=== PATIENT | male | born 1945 | race Caucasian/White ===

== ENCOUNTER 2017-08-18 04:23 | Inpatient (IN) | payer MEDICAID ==
[~2017-08-18] VITALS: Ht 172.7 cm; Wt 55.1 kg
[2017-08-18] MEDS ORDERED: INSU100V SQ (04:35)
[2017-08-18] MEDS ORDERED: DOXA2TAB PO (04:35)
[2017-08-18] MEDS ORDERED: FOLI0.8T2 PO (04:35)
[2017-08-18] MEDS ORDERED: HEPA500041 SQ (04:35)
[2017-08-18] MEDS ORDERED: SEVEC800 PO (04:35)
[2017-08-18] MEDS ORDERED: RAPID SEQUENCE KIT [RSI] 1 EACH KIT ONE (04:35)
[2017-08-18] MEDS ORDERED: CARV25 PO (04:35)
[2017-08-18] MEDS ORDERED: AMIN30LI28 PO (04:35)
[2017-08-18] MEDS ORDERED: HYDR-2924 PO (04:35)
[2017-08-18] MEDS ORDERED: SERT50TA12 PO (04:35)
[2017-08-18] MEDS ORDERED: NIFE60TA71 PO (04:35)
[2017-08-18] MEDS ORDERED: LOSA50TA37 PO (04:35)
[2017-08-18] MEDS ORDERED: SUCCINYLCHOLINE CHLORIDE 20 MG/ML 10 ML VIAL ONE (04:35)
[2017-08-18 05:00] LABS: BASOPHILS % (AUTO) 0.8 % (0.0-2.0); EOSINOPHILS % (AUTO) 1.1 % (1.0-6.0); HEMATOCRIT 33.2 % (41-53); HEMOGLOBIN 10.9 g/dL (13.5-17.5); MEAN CORPUSCULAR HEMOGLOBIN 25.6 pg (26.0-34.0); MEAN CORPUSCULAR HGB CONC 32.8 G/dL (31.0-37.0); MEAN CORPUSCULAR VOLUME 78 fL (80-100); MONOCYTES # (AUTO) 0.6 K/uL (0.1-1.0); MONOCYTES % (AUTO) 4.2 % (2.0-9.0); NEUTROPHILS # (AUTO) 12.4 K/uL (1.8-7.7); PLATELET COUNT (AUTO) 361 K/uL (150-450); RED BLOOD CELL COUNT(AUTO) 4.25 MIL/uL (4.50-5.90); RED CELL DISTRIBUTION WIDTH 24.2 % (11.5-14.5)
[2017-08-18 05:01] LABS: NEUTROPHILS % (AUTO) 86.9 % (40.0-70.0)
[2017-08-18 05:09] LABS: PROTHROMBIN TIME 10.3 SEC (9.4-11.6)
[2017-08-18 05:10] LABS: ANION GAP 11 mmol/L (8-16); CALCIUM, TOTAL 9.5 mg/dL (8.8-10.5); CARBON DIOXIDE 25 mmol/L (22-29); CHLORIDE 98 mmol/L (98-107); CREATININE 5.96 mg/dL (0.60-1.30); GLOMERULAR FILTR. RATE CALC 9 mL/min (>60); GLUCOSE,RANDOM 239 mg/dL (70-110); POTASSIUM 4.5 mmol/L (3.5-5.1); SODIUM SERUM 134 mmol/L (136-145); UREA NITROGEN, BLOOD 69 mg/dL (7-18)
[2017-08-18] MEDS ORDERED: 0.9% SODIUM CHLORIDE 5 ML NEB SOLUTION NEB ONE (05:11)
[2017-08-18] MEDS ORDERED: FUROSEMIDE 40 MG/4 ML VIAL IVP ONE (05:15)
[2017-08-18] MEDS ORDERED: IPRATROPIUM BROMIDE 0.5 MG/2.5 ML NEB SOLUTION NEB ONE (05:15)
[2017-08-18] MEDS ORDERED: ALBUTEROL SULFATE 2.5 MG/0.5 ML NEB SOLUTION NEB ONE (05:15)
[2017-08-18 05:17] LABS: ALANINE AMINOTRANSFERASE 21 U/L (12-78); ALBUMIN 2.7 g/dL (3.4-5.0); ALKALINE PHOSPHATASE 92 U/L (46-116); ASPARTATE AMINOTRANSFERASE 23 U/L (15-37); BILIRUBIN,TOTAL 0.5 mg/dL (0.1-1.0); CREATINE KINASE, TOTAL 64 U/L (39-308); TOTAL PROTEIN, SERUM 8.2 g/dL (6.4-8.2)
[2017-08-18 05:28] LABS: B-TYPE NATRIURETIC PEPTIDE 4880 pg/mL (0-100)
[2017-08-18 05:32] LABS: ABG A-A DIFF O2 594.9 mmHg (10-20.0); ABG BASE EXCESS -0.2 mmol/L (-2.0-3.0); ABG CARBOXYHEMOGLOBIN 1.2 % (0.0-1.5); ABG METHEMOGLOBIN 0.3 % (0.0-1.5); ABG OXYGEN CONTENT 14.4 mL/dL (15.0-23.0); ABG OXYHEMOGLOBIN 93.6 % (94.0-100.0); ABG PCO2 46 mmHg (35-45); ABG PH 7.355 (7.35-7.450); ABG TOTAL HEMOGLOBIN 10.9 G/dL (12.0-18.0); PO2, ARTERIAL BG 74.9 mmHg (75.0-83.0); SOURCE, BLOOD GAS ARTERIAL; TEMPERATURE, FAHRENHEIT, BG 96.5 FAHREN (96.0-98.6)
[2017-08-18 05:33] LABS: O2 DEVICE,BLOOD GAS NON REBREATHER (ROOM AIR); SITE, BLOOD GAS RT BRACHIAL
[2017-08-18] MEDS ORDERED: ONDANSETRON HCL 4 MG/2 ML VIAL IVP PRN (06:00)
[2017-08-18] MEDS ORDERED: ACETAMINOPHEN 325 MG TABLET PO PRN (06:00)
[2017-08-18] MEDS ORDERED: 0.9% SODIUM CHLORIDE 10 ML SYRINGE IVP PRN (06:00)
[2017-08-18] MEDS ORDERED: ASPIRIN 325 MG TABLET PO ONE (06:15)
[2017-08-18] MEDS: OXYGEN THERAPY IH SCH ×2 (07:01→21:34)
[2017-08-18 08:30] VITALS: BP 145/86
[2017-08-18] MEDS: VITAMIN B COMP/VIT C/FOLIC ACID CAPSULE PO SCH (10:00)
[2017-08-18] MEDS ORDERED: VANCOMYCIN HCL 500 MG in DEXTROSE 5%-WATER 100 ML IV SCH (10:00)
[2017-08-18] MEDS ORDERED: VANCOMYCIN HCL 1 GM/D5% WATER 200 ML IV PRN (10:15)
[2017-08-18] MEDS ORDERED: MANNITOL 25%-12.5 GM/50 ML VIAL IVP PRN (10:30)
[2017-08-18] MEDS ORDERED: SODIUM CHLORIDE 0.9% 250 ML IV ONE (11:50)
[2017-08-18] MEDS: PIPERACILLIN SODIUM/TAZOBACTAM 2.25 GM in DEXTROSE 5%-WATER 50 ML IV SCH ×2 (11:53→17:19)
[2017-08-18 12:00] VITALS: BP 117/69
[2017-08-18] MEDS ORDERED: VANCOMYCIN HCL 1 GM/D5% WATER 200 ML IV ONE (12:00)
[2017-08-18] MEDS: SEVELAMER CARBONATE 800 MG TABLET PO SCH ×2 (12:00→17:28)
[2017-08-18] MEDS: LOSARTAN POTASSIUM 50 MG TABLET PO SCH (13:00)
[2017-08-18] MEDS ORDERED: DEXTROSE 50%-WATER 25 GM/50 ML SYRINGE IVP PRN (13:15)
[2017-08-18] MEDS ORDERED: HEPA500018 SQ (13:20)
[2017-08-18] MEDS ORDERED: SODIUM CHLORIDE 0.9% 100 ML ONE (14:47)
[2017-08-18] MEDS ORDERED: IOVERSOL 350 MG/ML 150 ML VIAL ONE (14:47)
[2017-08-18 16:00] VITALS: BP 157/74
[2017-08-18] MEDS ORDERED: HEPARIN SODIUM,PORCINE 5,000 UNITS/ML VIAL IVP PRN ×2 (16:45)
[2017-08-18] MEDS ORDERED: HEPARIN SODIUM,PORCINE 5,000 UNITS/ML VIAL IVP ONE (16:45)
[2017-08-18] MEDS: HEPARIN SODIUM 25000 UNITS/D5W 250 ML IV PRN (17:21)
[2017-08-18 20:00] VITALS: BP 149/72
[2017-08-18] MEDS ORDERED: HEPARIN SODIUM,PORCINE 5,000 UNITS/ML VIAL SQ SCH (21:00)
[2017-08-18] MEDS: CARVEDILOL 12.5 MG TABLET PO SCH (21:34)
[2017-08-18 22:08] LABS: GLUCOSE,POINT OF CARE 109 MG/DL (70-110)
[2017-08-18 22:08] LABS: GLUCOSE,POINT OF CARE 133 MG/DL (70-110)
[2017-08-19] VITALS: BP 155/74
[2017-08-19] MEDS ORDERED: HEPARIN SODIUM,PORCINE 5,000 UNITS/ML VIAL IVP PRN (00:43)
[2017-08-19] MEDS ORDERED: 0.9% SODIUM CHLORIDE 10 ML SYRINGE IVP PRN (01:15)
[2017-08-19] MEDS: PIPERACILLIN SODIUM/TAZOBACTAM 2.25 GM in DEXTROSE 5%-WATER 50 ML IV SCH ×3 (02:06→17:35)
[2017-08-19 04:00] VITALS: BP 155/77
[2017-08-19 06:37] LABS: BASOPHILS % (AUTO) 1.1 % (0.0-2.0); EOSINOPHILS % (AUTO) 0.8 % (1.0-6.0); HEMATOCRIT 29.1 % (41-53); HEMOGLOBIN 9.5 g/dL (13.5-17.5); LYMPHOCYTES # (AUTO) 1.6 K/uL (1.0-4.8); LYMPHOCYTES % (AUTO) 11.5 % (22.0-44.0); MEAN CORPUSCULAR HEMOGLOBIN 25.4 pg (26.0-34.0); MEAN CORPUSCULAR HGB CONC 32.8 G/dL (31.0-37.0); MEAN CORPUSCULAR VOLUME 78 fL (80-100); MONOCYTES # (AUTO) 0.9 K/uL (0.1-1.0); MONOCYTES % (AUTO) 6.3 % (2.0-9.0); NEUTROPHILS # (AUTO) 11.1 K/uL (1.8-7.7); NEUTROPHILS % (AUTO) 80.3 % (40.0-70.0); PLATELET COUNT (AUTO) 345 K/uL (150-450); RED BLOOD CELL COUNT(AUTO) 3.76 MIL/uL (4.50-5.90); RED CELL DISTRIBUTION WIDTH 24.4 % (11.5-14.5)
[2017-08-19 06:48] LABS: GLUCOSE,POINT OF CARE 138 MG/DL (70-110)
[2017-08-19 06:48] LABS: GLUCOSE,POINT OF CARE 126 MG/DL (70-110)
[2017-08-19 07:02] LABS: ALBUMIN 2.5 g/dL (3.4-5.0); BILIRUBIN,TOTAL 0.5 mg/dL (0.1-1.0); CALCIUM, TOTAL 9.3 mg/dL (8.8-10.5); CREATININE 4.94 mg/dL (0.60-1.30); MAGNESIUM 1.9 mg/dL (1.80-2.40); PHOSPHORUS 5.1 mg/dL (2.5-4.9); POTASSIUM 4.5 mmol/L (3.5-5.1); THYROID STIMULATING HORMONE 1.81 uIU/mL (0.36-3.74); TOTAL PROTEIN, SERUM 7.4 g/dL (6.4-8.2); VANCOMYCIN,RANDOM 15.9 mcg/mL (25.0-50.0)
[2017-08-19 08:00] VITALS: BP 144/71
[2017-08-19] MEDS: VITAMIN B COMP/VIT C/FOLIC ACID CAPSULE PO SCH (08:49)
[2017-08-19] MEDS: ASPIRIN 81 MG CHEWABLE TABLET PO SCH (08:49)
[2017-08-19] MEDS: HEPARIN SODIUM,PORCINE 5,000 UNITS/ML VIAL IVP PRN ×3 (08:49→22:59)
[2017-08-19] MEDS: SEVELAMER CARBONATE 800 MG TABLET PO SCH ×3 (08:49→17:34)
[2017-08-19] MEDS: CARVEDILOL 12.5 MG TABLET PO SCH ×2 (08:50→21:43)
[2017-08-19] MEDS: SERTRALINE HCL 50 MG TABLET PO SCH (08:50)
[2017-08-19] MEDS: LOSARTAN POTASSIUM 50 MG TABLET PO SCH (08:50)
[2017-08-19] MEDS: OXYGEN THERAPY IH SCH ×2 (08:50→21:47)
[2017-08-19 10:54] LABS: ABG A-A DIFF O2 114.7 mmHg (10-20.0); ABG BASE EXCESS 1.5 mmol/L (-2.0-3.0); ABG CARBOXYHEMOGLOBIN 2.1 % (0.0-1.5); ABG HCO3 25.9 mmol/L (22.0-26.0); ABG METHEMOGLOBIN 0.4 % (0.0-1.5); ABG OXYGEN CONTENT 12.9 mL/dL (15.0-23.0); ABG OXYGEN SATURATION 97.6 % (95.0-98.0); ABG OXYHEMOGLOBIN 95.2 % (94.0-100.0); ABG PCO2 38 mmHg (35-45); ABG PH 7.448 (7.35-7.450); ABG TOTAL HEMOGLOBIN 9.5 G/dL (12.0-18.0); PO2, ARTERIAL BG 98.1 mmHg (75.0-83.0); SOURCE, BLOOD GAS ARTERIAL; TEMPERATURE, FAHRENHEIT, BG 98.6 FAHREN (96.0-98.6)
[2017-08-19 11:02] LABS: O2 DEVICE,BLOOD GAS CANNULA (ROOM AIR); SITE, BLOOD GAS RT BRACHIAL
[2017-08-19 12:00] VITALS: BP 129/55
[2017-08-19] MEDS: INSULIN LISPRO 100 UNITS/ML SQ PRN ×2 (12:22→21:46)
[2017-08-19] MEDS ORDERED: SODIUM CHLORIDE 0.9% 1,000 ML IV ONE (14:14)
[2017-08-19 15:58] LABS: GLUCOSE,POINT OF CARE 160 MG/DL (70-110)
[2017-08-19 16:00] VITALS: BP 152/70
[2017-08-19] MEDS: HEPARIN SODIUM 25000 UNITS/D5W 250 ML IV PRN (17:31)
[2017-08-19] MEDS ORDERED: VANCOMYCIN HCL 1 GM/D5% WATER 200 ML IV ONE (19:00)
[2017-08-19 20:00] VITALS: BP 133/65
[2017-08-20] VITALS (18 sets, daily range): BP systolic 122–159; BP diastolic 56–77
[2017-08-20] MEDS: HYDROCODONE/ACETAMINOPHEN 5-325 MG TABLET PO PRN ×4 (00:31→21:17)
[2017-08-20 00:53] LABS: GLUCOSE,POINT OF CARE 178 MG/DL (70-110)
[2017-08-20 00:53] LABS: GLUCOSE,POINT OF CARE 104 MG/DL (70-110)
[2017-08-20] MEDS: PIPERACILLIN SODIUM/TAZOBACTAM 2.25 GM in DEXTROSE 5%-WATER 50 ML IV SCH ×3 (02:26→17:23)
[2017-08-20 05:09] LABS: HEMOGLOBIN A1C 7.3 % (4.5-6.2)
[2017-08-20 05:10] LABS: BASOPHILS % (AUTO) 1.1 % (0.0-2.0); EOSINOPHILS % (AUTO) 4.4 % (1.0-6.0); HEMATOCRIT 27.5 % (41-53); HEMOGLOBIN 9.1 g/dL (13.5-17.5); LYMPHOCYTES # (AUTO) 1.9 K/uL (1.0-4.8); LYMPHOCYTES % (AUTO) 17.6 % (22.0-44.0); MEAN CORPUSCULAR HEMOGLOBIN 25.9 pg (26.0-34.0); MEAN CORPUSCULAR HGB CONC 33.2 G/dL (31.0-37.0); MEAN CORPUSCULAR VOLUME 78 fL (80-100); MONOCYTES # (AUTO) 0.9 K/uL (0.1-1.0); MONOCYTES % (AUTO) 8.5 % (2.0-9.0); NEUTROPHILS # (AUTO) 7.5 K/uL (1.8-7.7); NEUTROPHILS % (AUTO) 68.4 % (40.0-70.0); PLATELET COUNT (AUTO) 321 K/uL (150-450); RED BLOOD CELL COUNT(AUTO) 3.52 MIL/uL (4.50-5.90); RED CELL DISTRIBUTION WIDTH 24.7 % (11.5-14.5)
[2017-08-20 05:58] LABS: CHOL/HDL RATIO 1.9 (4.2-7.3); MAGNESIUM 1.8 mg/dL (1.80-2.40)
[2017-08-20 06:33] LABS: GLUCOSE,POINT OF CARE 96 MG/DL (70-110)
[2017-08-20] MEDS: SEVELAMER CARBONATE 800 MG TABLET PO SCH ×3 (08:00→17:23)
[2017-08-20] MEDS ORDERED: LIDOCAINE HCL/PF 1% 30 ML VIAL ONE (08:42)
[2017-08-20] MEDS ORDERED: SODIUM BICARBONATE 50 MEQ/50 ML VIAL ONE (08:42)
[2017-08-20] MEDS ORDERED: IOHEXOL 300 MG/ML 150 ML VIAL ONE (08:42)
[2017-08-20] MEDS: ASPIRIN 81 MG CHEWABLE TABLET PO SCH (09:00)
[2017-08-20] MEDS: VITAMIN B COMP/VIT C/FOLIC ACID CAPSULE PO SCH ×2 (09:00→11:05)
[2017-08-20] MEDS: OXYGEN THERAPY IH SCH ×2 (09:27→21:17)
[2017-08-20] MEDS ORDERED: FentaNYL CITRATE-PF 100 MCG/2 ML VIAL ONE (09:30)
[2017-08-20] MEDS ORDERED: MIDAZOLAM HCL 2 MG/2 ML VIAL ONE (09:30)
[2017-08-20] MEDS ORDERED: SODIUM CHLORIDE 0.9% 500 ML IV ONE (09:39)
[2017-08-20] MEDS ORDERED: HEPARIN SODIUM 1000 UNITS/NS 1,000 ML IARTER ONE (09:39)
[2017-08-20] MEDS ORDERED: MIDAZOLAM HCL 2 MG/2 ML VIAL IVP ONE (09:45)
[2017-08-20] MEDS ORDERED: LIDOCAINE 1% 30 ML/SOD BICARB 8.4% 4 ML SQ ONE (09:45)
[2017-08-20] MEDS ORDERED: FentaNYL CITRATE-PF 100 MCG/2 ML VIAL IVP ONE (09:45)
[2017-08-20] MEDS ORDERED: IOHEXOL 300 MG/ML 150 ML VIAL IARTER ONE (09:45)
[2017-08-20] MEDS ORDERED: IOHEXOL 300 MG/ML 50 ML VIAL ONE (09:55)
[2017-08-20] MEDS: LOSARTAN POTASSIUM 50 MG TABLET PO SCH (11:06)
[2017-08-20] MEDS: SERTRALINE HCL 50 MG TABLET PO SCH (11:07)
[2017-08-20] MEDS: CARVEDILOL 12.5 MG TABLET PO SCH ×2 (11:16→21:17)
[2017-08-20] MEDS: INSULIN LISPRO 100 UNITS/ML SQ PRN ×2 (11:33→17:33)
[2017-08-20 12:57] LABS: GLUCOSE,POINT OF CARE 145 MG/DL (70-110)
[2017-08-20] MEDS ORDERED: HEPARIN SODIUM,PORCINE 5,000 UNITS/ML VIAL IVP ONE (20:30)
[2017-08-20] MEDS ORDERED: HEPARIN SODIUM,PORCINE 5,000 UNITS/ML VIAL IVP PRN ×2 (20:30)
[2017-08-20 21:12] LABS: GLUCOMETER DEV NAME(LOC) 5S 2N; GLUCOSE,POINT OF CARE 199 MG/DL (70-110)
[2017-08-20 21:24] LABS: BASOPHILS % (AUTO) 1.1 % (0.0-2.0); EOSINOPHILS % (AUTO) 3.9 % (1.0-6.0); HEMATOCRIT 29.4 % (41-53); HEMOGLOBIN 9.6 g/dL (13.5-17.5); LYMPHOCYTES # (AUTO) 1.5 K/uL (1.0-4.8); MEAN CORPUSCULAR HEMOGLOBIN 25.6 pg (26.0-34.0); MEAN CORPUSCULAR HGB CONC 32.8 G/dL (31.0-37.0); MEAN CORPUSCULAR VOLUME 78 fL (80-100); MONOCYTES # (AUTO) 0.9 K/uL (0.1-1.0); MONOCYTES % (AUTO) 10.7 % (2.0-9.0); NEUTROPHILS # (AUTO) 5.3 K/uL (1.8-7.7); NEUTROPHILS % (AUTO) 65.3 % (40.0-70.0); PLATELET COUNT (AUTO) 368 K/uL (150-450); RED BLOOD CELL COUNT(AUTO) 3.76 MIL/uL (4.50-5.90); RED CELL DISTRIBUTION WIDTH 24.2 % (11.5-14.5)
[2017-08-20 21:31] LABS: PROTHROMBIN TIME 10.7 SEC (9.4-11.6)
[2017-08-20] MEDS: HEPARIN SODIUM 25000 UNITS/D5W 250 ML IV PRN (23:04)
[2017-08-21] VITALS (10 sets, daily range): BP systolic 131–158; BP diastolic 54–70
[2017-08-21] MEDS: PIPERACILLIN SODIUM/TAZOBACTAM 2.25 GM in DEXTROSE 5%-WATER 50 ML IV SCH ×2 (02:32→09:32)
[2017-08-21 04:13] LABS: GLUCOMETER DEV NAME(LOC) 5N 2S; GLUCOSE,POINT OF CARE 135 MG/DL (70-110)
[2017-08-21 06:57] LABS: GLUCOMETER DEV NAME(LOC) 5N 2S; GLUCOSE,POINT OF CARE 120 MG/DL (70-110)
[2017-08-21 07:00] LABS: BASOPHILS % (AUTO) 0.7 % (0.0-2.0); HEMATOCRIT 26.9 % (41-53); HEMOGLOBIN 8.9 g/dL (13.5-17.5); LYMPHOCYTES # (AUTO) 1.8 K/uL (1.0-4.8); LYMPHOCYTES % (AUTO) 16.9 % (22.0-44.0); MEAN CORPUSCULAR HEMOGLOBIN 25.8 pg (26.0-34.0); MEAN CORPUSCULAR HGB CONC 33.1 G/dL (31.0-37.0); MEAN CORPUSCULAR VOLUME 78 fL (80-100); MONOCYTES # (AUTO) 0.9 K/uL (0.1-1.0); MONOCYTES % (AUTO) 8.3 % (2.0-9.0); NEUTROPHILS # (AUTO) 7.3 K/uL (1.8-7.7); NEUTROPHILS % (AUTO) 69.1 % (40.0-70.0); PLATELET COUNT (AUTO) 366 K/uL (150-450); RED BLOOD CELL COUNT(AUTO) 3.45 MIL/uL (4.50-5.90)
[2017-08-21] MEDS: SERTRALINE HCL 50 MG TABLET PO SCH (08:29)
[2017-08-21] MEDS: OXYGEN THERAPY IH SCH (08:29)
[2017-08-21] MEDS: SEVELAMER CARBONATE 800 MG TABLET PO SCH ×3 (08:29→17:52)
[2017-08-21] MEDS: ASPIRIN 81 MG CHEWABLE TABLET PO SCH (08:30)
[2017-08-21] MEDS: CARVEDILOL 12.5 MG TABLET PO SCH ×2 (08:30→20:54)
[2017-08-21] MEDS: HYDROCODONE/ACETAMINOPHEN 5-325 MG TABLET PO PRN ×2 (08:30→20:54)
[2017-08-21] MEDS: LOSARTAN POTASSIUM 50 MG TABLET PO SCH (08:31)
[2017-08-21] MEDS ORDERED: SODIUM CHLORIDE 0.9% 1,000 ML IV ONE (09:27)
[2017-08-21] MEDS: HEPARIN SODIUM 25000 UNITS/D5W 250 ML IV PRN (09:35)
[2017-08-21] MEDS ORDERED: HEPARIN SODIUM,PORCINE 1,000 UNITS/ML VIAL IVP ONE (12:00)
[2017-08-21] MEDS: INSULIN LISPRO 100 UNITS/ML SQ PRN (17:55)
[2017-08-21] MEDS: APIXABAN 5 MG TABLET PO SCH (23:26)
[2017-08-22 00:13] VITALS: BP 161/82
[2017-08-22 04:27] LABS: GLUCOMETER DEV NAME(LOC) 5N 2S; GLUCOSE,POINT OF CARE 136 MG/DL (70-110)
[2017-08-22 04:27] LABS: GLUCOMETER DEV NAME(LOC) 5N 2S; GLUCOSE,POINT OF CARE 101 MG/DL (70-110)
[2017-08-22 06:08] VITALS: BP 147/75
[2017-08-22 07:05] VITALS: BP 152/76
[2017-08-22 07:28] LABS: GLUCOMETER DEV NAME(LOC) 5S 2N; GLUCOSE,POINT OF CARE 202 MG/DL (70-110)
[2017-08-22 07:42] LABS: GLUCOMETER DEV NAME(LOC) 5N 2S; GLUCOSE,POINT OF CARE 122 MG/DL (70-110)
[2017-08-22] MEDS: OXYGEN THERAPY IH SCH (08:00)
[2017-08-22] MEDS ORDERED: LEVOFLOXACIN 500 MG TABLET PO SCH (09:00)
[2017-08-22] MEDS ORDERED: LEVOFLOXACIN 500 MG TABLET PO ONE (09:00)
[2017-08-22] MEDS: SEVELAMER CARBONATE 800 MG TABLET PO SCH ×2 (09:10→12:00)
[2017-08-22] MEDS: VITAMIN B COMP/VIT C/FOLIC ACID CAPSULE PO SCH (09:11)
[2017-08-22] MEDS: APIXABAN 5 MG TABLET PO SCH (09:11)
[2017-08-22] MEDS: LOSARTAN POTASSIUM 50 MG TABLET PO SCH (09:11)
[2017-08-22] MEDS: ASPIRIN 81 MG CHEWABLE TABLET PO SCH (09:11)
[2017-08-22] MEDS: CARVEDILOL 12.5 MG TABLET PO SCH (09:11)
[2017-08-22] MEDS: SERTRALINE HCL 50 MG TABLET PO SCH (09:11)
[2017-08-22] MEDS ORDERED: NIFEdipine 30 MG ER TABLET PO SCH (09:30)
[2017-08-22] MEDS ORDERED: VANCOMYCIN HCL 750 MG in DEXTROSE 5%-WATER 250 ML IV ONE (10:00)
[2017-08-22 11:15] VITALS: BP 136/58
[2017-08-22] MEDS: INSULIN LISPRO 100 UNITS/ML SQ PRN (12:05)
[2017-08-22] MEDS ORDERED: APIX2.5T PO (13:48)
[2017-08-22] MEDS ORDERED: ASPI-556 PO (13:48)
[2017-08-22] MEDS ORDERED: CARV12 PO (13:49)
[2017-08-22] MEDS ORDERED: EPOE10003 SQ (13:50)
[2017-08-22] MEDS ORDERED: LEVO250P6 PO (13:51)
[2017-08-22] MEDS ORDERED: NIFE30TA5 PO (13:53)
[2017-08-22] MEDS ORDERED: SERT50TA12 PO (13:53)
[2017-08-22 15:53] VITALS: BP 138/62
[2017-08-22 16:32] LABS: GLUCOMETER DEV NAME(LOC) 5N 2S; GLUCOSE,POINT OF CARE 177 MG/DL (70-110)
[2017-08-23] MEDS ORDERED: EPOETIN ALFA 10,000 UNITS/ML VIAL SQ SCH (09:00)
[2017-08-23] MEDS ORDERED: APIXABAN 2.5 MG TABLET PO SCH (09:00)
[2017-08-24] MEDS ORDERED: LEVOFLOXACIN 250 MG TABLET PO SCH (09:00)
[2017-08-28] MEDS ORDERED: APIXABAN 5 MG TABLET PO SCH (21:00)
== END 2017-08-22 17:20 | DRG 192 ==
LOC: EMS 04:24 → ICU 06:12 → 5N 08-20 14:35
PROVIDERS: ADMIT Family Medicine; ATTEND Family Medicine
PROC: 5A1D70Z Performance of Urinary Filtration, Intermittent, Less than 6 Hours Per Day (ICD-10-PCS; 2017-08-18)
PROC: 5A09357 Assistance with Respiratory Ventilation, Less than 24 Consecutive Hours, Continuous Positive Airway Pressure (ICD-10-PCS; 2017-08-18)
PROC: 5A1D70Z Performance of Urinary Filtration, Intermittent, Less than 6 Hours Per Day (ICD-10-PCS; 2017-08-19)
PROC: 4A023N7 Measurement of Cardiac Sampling and Pressure, Left Heart, Percutaneous Approach (ICD-10-PCS; principal; 2017-08-20)
PROC: B211YZZ Fluoroscopy of Multiple Coronary Arteries using Other Contrast (ICD-10-PCS; 2017-08-20)
PROC: B215YZZ Fluoroscopy of Left Heart using Other Contrast (ICD-10-PCS; 2017-08-20)
PROC: B41FYZZ Fluoroscopy of Right Lower Extremity Arteries using Other Contrast (ICD-10-PCS; 2017-08-20)
PROC: 5A1D70Z Performance of Urinary Filtration, Intermittent, Less than 6 Hours Per Day (ICD-10-PCS; 2017-08-21)
DX: I13.2 Hypertensive heart and chronic kidney disease with heart failure and with stage 5 chronic kidney disease, or end stage renal disease (principal); I21.4 Non-ST elevation (NSTEMI) myocardial infarction; I26.99 Other pulmonary embolism without acute cor pulmonale; J96.01 Acute respiratory failure with hypoxia; J18.9 Pneumonia, unspecified organism; E44.0 Moderate protein-calorie malnutrition; N18.6 End stage renal disease; E11.52 Type 2 diabetes mellitus with diabetic peripheral angiopathy with gangrene; I50.9 Heart failure, unspecified; E11.22 Type 2 diabetes mellitus with diabetic chronic kidney disease; M19.90 Unspecified osteoarthritis, unspecified site; E78.5 Hyperlipidemia, unspecified; D63.1 Anemia in chronic kidney disease; E11.621 Type 2 diabetes mellitus with foot ulcer; E21.3 Hyperparathyroidism, unspecified; L97.509 Non-pressure chronic ulcer of other part of unspecified foot with unspecified severity; I25.10 Atherosclerotic heart disease of native coronary artery without angina pectoris; Z89.429 Acquired absence of other toe(s), unspecified side; Z89.431 Acquired absence of right foot; Z99.2 Dependence on renal dialysis; Z79.01 Long term (current) use of anticoagulants; Z79.4 Long term (current) use of insulin
CPT/HCPCS: 71275; 82805; 82962; 83036; 83605; 83735; 84100; 84443; 87040; 87081; 87340; 90935; 93005; 93306; 94640; 94660; 96374; 99291; J0330; J1644; J1940; J2250; J2543; J3010; J3370; J3490; J7030; J7050; J7060; Q9967